=== PATIENT | female | born 1970 | race African-American/Black ===

== ENCOUNTER 2017-02-15 20:35 | Emergency (ER) | payer OTHER, MEDICAID ==
[~2017-02-15] VITALS: Ht 162.6 cm; Wt 65.8 kg
[~2017-02-15 20:35] MED LIST: ASPIRIN; PROGESTERONE; PROPRANOLOL
[2017-02-15] MEDS ORDERED: KETOROLAC 60MG/2ML VIAL IM ONE (23:30)
[2017-02-16 01:26] VITALS: BP 129/88
== END 2017-02-16 01:26 | disposition home or self-care (01) ==
LOC: ER 20:35
DX: M62.830 Muscle spasm of back (principal); F12.10 Cannabis abuse, uncomplicated
CPT/HCPCS: 81025; 96372; 99283; J1885

== ENCOUNTER 2017-10-11 15:50 | Emergency (ER) | payer OTHER, MEDICAID ==
[~2017-10-11] VITALS: Ht 162.6 cm; Wt 79.5 kg
[2017-10-11] MEDS ORDERED: IBUPROFEN 600MG TABLET PO ONE (17:30)
[2017-10-11 19:13] VITALS: BP 116/83
== END 2017-10-11 19:15 | disposition home or self-care (01) ==
LOC: ER 18:04
DX: M79.1 Myalgia (principal); G43.909 Migraine, unspecified, not intractable, without status migrainosus; V89.2XXA Person injured in unspecified motor-vehicle accident, traffic, initial encounter; Y93.9 Activity, unspecified; Y92.410 Unspecified street and highway as the place of occurrence of the external cause
CPT/HCPCS: 99283

== ENCOUNTER 2018-12-04 21:38 | Emergency (ER) | payer OTHER, MEDICAID ==
[~2018-12-04] VITALS: Ht 160 cm; Wt 78.0 kg
[2018-12-04 22:14] VITALS: BP 146/84
== END 2018-12-05 00:45 | disposition home or self-care (01) ==
LOC: ER 22:00
DX: R07.0 Pain in throat (principal); G43.909 Migraine, unspecified, not intractable, without status migrainosus; Z98.890 Other specified postprocedural states; Z79.82 Long term (current) use of aspirin; Z79.899 Other long term (current) drug therapy
CPT/HCPCS: 99281

== ENCOUNTER 2023-07-13 04:11 | Emergency (ER) | payer OTHER, MEDICAID ==
[~2023-07-13] VITALS: Ht 157.5 cm; Wt 74.0 kg
[2023-07-13 04:25] VITALS: O2SAT 97
[2023-07-13] MEDS: ONDANSETRON 4MG ODT PO STA (05:51)
[2023-07-13] MEDS: MAGNESIUM/ALUMINUM HYDROXIDE/SIMETHICONE 30ML UDC PO ONE (06:00)
[2023-07-13] MEDS: FAMOTIDINE 20MG TABLET PO ONE (06:00)
[2023-07-13 06:15] LABS: BASOPHILS % 0.7 % (0.0-2.0); EOSINOPHILS % 2.4 % (0.0-5.0); HEMATOCRIT. 37.8 % (36.0-48.0); HEMOGLOBIN. 12.4 g/dL (12.0-16.0); LYMPHOCYTES % 39.7 % (20.0-50.0); MEAN CORPUSCULAR HEMOGLOBIN 28.3 pg (28.0-32.0); MEAN CORPUSCULAR HGB CONC 32.8 g/dL (31.0-37.0); MEAN CORPUSCULAR VOLUME 86.2 fL (81.0-99.0); MEAN PLATELET VOLUME 7.2 fl (7.4-10.4); MONOCYTES % 8.7 % (2.0-8.0); NEUTROPHILS % 48.5 % (40.0-76.0); PLATELET 265 x1000/uL (130-400); RED BLOOD CELL COUNT 4.38 mill/uL (4.2-5.4); RED CELL DISTRIBUTION WIDTH 14.3 % (11.6-14.6); WHITE BLOOD COUNT 5.8 x1000/uL (4.5-11.0)
[2023-07-13 06:30] VITALS: BP 121/69; PULSE 84; RESP 18; TEMP 98.7
[2023-07-13 06:33] LABS: ALANINE AMINOTRANSFERASE < 7 IU/L (10-49); ALBUMIN 4.1 g/dL (3.2-4.8); ASPARTATE AMINOTRANSFERASE 14 IU/L (<34); BILIRUBIN TOTAL 0.6 mg/dL (0.1-1.0); CALCIUM 9.5 mg/dL (8.7-10.4); CARBON DIOXIDE 29 mEq/L (21-32); CHLORIDE 107 mEq/L (98-107); CREATININE 1.1 mg/dL (0.6-1.0); GLUCOSE 110 mg/dL (70-105); POTASSIUM 4.2 mEq/L (3.5-5.1); PROTEIN TOTAL 6.6 g/dL (6.0-8.3); SODIUM 141 mEq/L (136-145); TROPONIN I HIGH SENSITIVITY 4 ng/L (3.0-34); UREA NITROGEN BLOOD 13 mg/dL (9-23)
[2023-07-13] MEDS ORDERED: MAG-55 PO (07:02)
== END 2023-07-13 07:15 | disposition home or self-care (01) ==
LOC: ER 05:47
DX: R14.3 Flatulence (principal); F12.10 Cannabis abuse, uncomplicated; I10 Essential (primary) hypertension; Z98.890 Other specified postprocedural states; Z86.59 Personal history of other mental and behavioral disorders
CPT/HCPCS: 99285; 71045; 80053; 83880; 85025; 84484; 36415; 93005; Q0162

== ENCOUNTER 2023-07-20 16:14 | Emergency (ER) | payer OTHER, MEDICAID ==
[~2023-07-20] VITALS: Ht 157.5 cm; Wt 73.9 kg
[~2023-07-20 16:14] MED LIST changes: +MAG-55 PO
[2023-07-20 16:26] VITALS: TEMP 98.2; O2SAT 99
[2023-07-20 16:54] LABS: BASOPHILS % 0.9 % (0.0-2.0); EOSINOPHILS % 1.6 % (0.0-5.0); HEMATOCRIT. 42.4 % (36.0-48.0); LYMPHOCYTES % 55.2 % (20.0-50.0); MEAN CORPUSCULAR HEMOGLOBIN 28.7 pg (28.0-32.0); MEAN CORPUSCULAR HGB CONC 33.1 g/dL (31.0-37.0); MEAN CORPUSCULAR VOLUME 86.6 fL (81.0-99.0); MEAN PLATELET VOLUME 7.2 fl (7.4-10.4); MONOCYTES % 8.5 % (2.0-8.0); NEUTROPHILS % 33.8 % (40.0-76.0); PLATELET 311 x1000/uL (130-400); RED BLOOD CELL COUNT 4.89 mill/uL (4.2-5.4); RED CELL DISTRIBUTION WIDTH 14.2 % (11.6-14.6); WHITE BLOOD COUNT 5.1 x1000/uL (4.5-11.0)
[2023-07-20 17:07] LABS: ALANINE AMINOTRANSFERASE < 7 IU/L (10-49); ALBUMIN 4.7 g/dL (3.2-4.8); ASPARTATE AMINOTRANSFERASE 16 IU/L (<34); BILIRUBIN TOTAL 0.7 mg/dL (0.1-1.0); CARBON DIOXIDE 31 mEq/L (21-32); CHLORIDE 102 mEq/L (98-107); GLUCOSE 88 mg/dL (70-105); POTASSIUM 3.9 mEq/L (3.5-5.1); PROTEIN TOTAL 7.6 g/dL (6.0-8.3); SODIUM 138 mEq/L (136-145); TROPONIN I HIGH SENSITIVITY 4 ng/L (3.0-34); UREA NITROGEN BLOOD 11 mg/dL (9-23)
[2023-07-20 21:17] VITALS: BP 150/94; PULSE 66; RESP 18
== END 2023-07-20 21:20 | disposition home or self-care (01) ==
LOC: ER 16:14
DX: R00.2 Palpitations (principal); G43.909 Migraine, unspecified, not intractable, without status migrainosus; F12.90 Cannabis use, unspecified, uncomplicated; I10 Essential (primary) hypertension; Z98.890 Other specified postprocedural states
CPT/HCPCS: 36415; 71045; 80053; 84484; 85025; 93005; 99285

== ENCOUNTER 2025-01-22 10:55 | Emergency (ER) | payer MEDICARE, MEDICAID ==
[~2025-01-22] VITALS: Ht 157.5 cm; Wt 77.0 kg
[2025-01-22 11:03] VITALS: O2SAT 99
[2025-01-22] MEDS: KETOROLAC 30MG/ML VIAL IM ONE (11:38)
[2025-01-22] MEDS: LIDOCAINE 5% PATCH TOP STA (11:38)
[2025-01-22] MEDS ORDERED: CYCL5TAB3 MT (11:42)
[2025-01-22] MEDS ORDERED: IBUP-2029 MT (11:42)
[2025-01-22] MEDS ORDERED: LIDO700A30 TP (11:42)
[2025-01-22 11:50] VITALS: BP 130/99; PULSE 71; RESP 18; TEMP 36.8; O2SAT 98
== END 2025-01-22 11:54 | disposition home or self-care (01) ==
LOC: ER 10:55
DX: M25.512 Pain in left shoulder (principal); F12.90 Cannabis use, unspecified, uncomplicated; I10 Essential (primary) hypertension; G43.909 Migraine, unspecified, not intractable, without status migrainosus; Z79.899 Other long term (current) drug therapy
CPT/HCPCS: 99283; 96372; J1885